=== PATIENT | male | born 1985 | race Caucasian/White ===

== ENCOUNTER 2022-02-02 19:56 | Emergency (ER) | payer MEDICAID ==
[~2022-02-02] VITALS: Ht 172.7 cm; Wt 115.0 kg
[2022-02-02] MEDS ORDERED: ONDANSETRON HCL 4MG/2ML INJ IV STA (22:30)
[2022-02-02] MEDS ORDERED: KETOROLAC 30MG/ML VIAL IV STA (22:30)
[2022-02-02] MEDS ORDERED: SODIUM CHLORIDE 0.9% 1,000 ML IV ONE (22:30)
[2022-02-02 23:02] LABS: CLARITY URINE CLEAR (CLEAR); COLOR URINE YELLOW (YELLOW); KETONES URINE NEGATIVE (NEGATIVE); LEUKOCYTE ESTERASE URINE NEGATIVE (NEGATIVE); NITRITE URINE NEGATIVE (NEGATIVE); OCCULT BLOOD URINE 2+ (NEGATIVE); PROTEIN URINE NEGATIVE (NEGATIVE); SPECIFIC GRAVITY URINE 1.013 (1.005-1.030); UROBILINOGEN URINE 0.2 E.U./dL (0.2-1.0)
[2022-02-02 23:14] LABS: CHLORIDE 102 mEq/L (98-107)
[2022-02-02 23:23] LABS: BASOPHILS % 0.8 % (0.0-2.0); HEMOGLOBIN. 14.4 g/dL (14.0-18.0); LYMPHOCYTES % 21.8 % (20.0-50.0); MEAN CORPUSCULAR VOLUME 79.5 fL (80.0-94.0); MONOCYTES % 6.1 % (2.0-8.0); NEUTROPHILS % 69.3 % (40.0-76.0); RED BLOOD CELL COUNT 5.54 mill/uL (4.7-6.1); RED CELL DISTRIBUTION WIDTH 14.2 % (11.6-14.6)
[2022-02-03 00:43] LABS: MEAN PLATELET VOLUME 8.6 fl (7.4-10.4); PLATELET 277 x1000/uL (130-400)
[2022-02-03] MEDS ORDERED: TAMS-11 MT (03:14)
[2022-02-03] MEDS ORDERED: IBUP-2028 MT (03:14)
[2022-02-03] MEDS ORDERED: ACET-2708 MT (03:14)
[2022-02-03 03:54] VITALS: BP 129/88
== END 2022-02-03 03:54 | disposition home or self-care (01) ==
LOC: ER 19:56
DX: N13.2 Hydronephrosis with renal and ureteral calculous obstruction (principal)
CPT/HCPCS: 36415; 74176; 80053; 81003; 83690; 85025; 96361; 96374; 96375; 99284; J1885; J2405; J7030